=== PATIENT | male | born 1930 | race Hispanic/Latino ===

== ENCOUNTER 2016-04-09 08:18 | Outpatient (CLI) | payer MEDICARE, OTHER ==
--- NOTE | 2016-04-10 08:58 | Magnetic Resonance Report ---
MR UPPER EXTREMITY JOINT RIGHT WITHOUT CONTRAST: HISTORY: Shoulder pain, evaluate for rotator cuff tear. TECHNIQUE: Multisequence, multiplanar MRI without contrast. FINDINGS: No comparison. A large full-thickness tear with retraction is identified in the distal supraspinatus tendon. The defect measures up to 2 cm in greatest dimension. The supraspinatus tendon is retracted to the level of the acromion. This appears to be a chronic finding as there is [id number] fatty atrophy of the supraspinatus muscle. There is at least a partial thickness tear greater than 50% in the anterior fibers of the infraspinatus tendon. The subscapularis tendon is intact although it is thickened with increased signal suggesting tendinosis. The teres minor tendon is normal. The horizontal portion of the long head of the biceps tendon is poorly visualized. The biceps tendon appears to be subluxed medially but grossly intact. No obvious SLAP lesion. Advanced degenerative changes are noted at the glenohumeral joint and AC joint. The labrum is poorly visualized but appears irregular with probable degenerative tears. A large joint effusion is present which extends to the subacromial and subdeltoid bursa and subscapular recess. IMPRESSION: Large full-thickness tear in the distal supraspinatus tendon with retraction of the tendon and fatty atrophy of the supraspinatus muscle. This suggests a chronic tear. There is at least a partial tear involving the infraspinatus tendon, as outlined above. This may be more acute in nature. Tendinosis of the subscapularis tendon. Subluxation of the long head of the biceps tendon from the bicipital groove. Advanced osteoarthritic changes. Large joint effusion.
== END 2016-04-09 08:19 | disposition home or self-care (01) ==
LOC: SPVIMAG 08:18
DX: M75.101 Unspecified rotator cuff tear or rupture of right shoulder, not specified as traumatic (principal); M25.411 Effusion, right shoulder; M62.511 Muscle wasting and atrophy, not elsewhere classified, right shoulder